=== PATIENT | male | born 1980 | race Caucasian/White ===

== ENCOUNTER 2017-12-17 08:46 | Emergency (ER) | payer OTHER ==
[2017-12-17] MEDS ORDERED: SMZ./TMP. 800/160 MG TABLET ONE (09:26)
--- NOTE | 2017-12-17 09:36 | ER ---
Nurse's Notes [facility] Name: Terrell Rosales Age: 37 yrs Sex: Male : 1980 Arrival Date: 12/17/2017 Time: 08:47 Bed 17 Private MD: Quirino Camarillo Diagnosis: Cutaneous abscess of back [any part, except buttock] Presentation: 12/17 09:03 Presenting complaint: Patient states: abscess to R upper back , approx size of a dewayne ss that has been there for years, but over the last few days has flared up and gotten tender. Denies fever. Transition of care: patient was not received from another setting of care. Onset of symptoms is unknown. Initial Sepsis Screen: Does the patient meet any 2 criteria? No. Patient's initial sepsis screen is negative. Does the patient have a suspected source of infection? No. Patient's initial sepsis screen is negative. Care prior to arrival: None. 09:03 Method Of Arrival: Ambulatory ss 09:03 Acuity: SAE 4 ss Historical: - Allergies: 09:08 PENICILLINS; ss - Home Meds: 09:08 Nexium Oral [Active]; ss - PMHx: 09:08 GERD; ss - PSHx: 09:08 Cholecystectomy; Knee surgery; ss - Immunization history:: Adult Immunizations up to date. - Social history:: Smoking status: Patient/guardian denies using tobacco. Screenin:00 Abuse screen: Denies threats or abuse. Nutritional screening: No deficits noted. rb1 Tuberculosis screening: No symptoms or risk factors identified. Fall Risk None identified. Assessment: 09:00 General: Appears in no apparent distress. comfortable, Behavior is calm, cooperative, rb1 Denies fever. Pain: Complains of pain in right scapular area Pain radiates to right arm Pain currently is 7 out of 10 on a pain scale. Pain began pt. stated, "My said that it was a cyst and I have had it for years. Never had much trouble with it until now.". Neuro: Level of Consciousness is awake, alert, obeys commands, Oriented to person, place, time, situation. Cardiovascular: Capillary refill < 3 seconds is brisk in bilateral fingers. Respiratory: Airway is patent Respiratory effort is even, unlabored, Respiratory pattern is regular, symmetrical. GI: No signs and/or symptoms were reported involving the gastrointestinal system. : No signs and/or symptoms were reported regarding the genitourinary system. Derm: Skin is pink, warm \\T\\ dry. Musculoskeletal: Pt. has a lump on the right scapula area. Surrounding tissue is red. 09:44 Reassessment: Patient appears in no apparent distress at this time. No changes from rb1 previously documented assessment. Vital Signs: 09:08 BP 138 / 97; Pulse 69; Resp 20; Temp 97.1(TE); Pulse Ox 100% on R/A; Weight 117.93 kg; ss Height 6 ft. 2 in. (187.96 cm); Pain 6/10; 09:11 BP 128 / 91; Pulse 76; Resp 18; Pulse Ox 98% on R/A; mh5 09:08 Body Mass Index 33.38 (117.93 kg, 187.96 cm) ED Course: 08:47 Patient arrived in ED. as 08:47 [facility], Quirino is Private Physician. as 09:00 Angle Cevallos FNP-C is [facility]. kb 09:00 Mauro Maradiaga MD is Attending Physician. kb 09:00 Patient has correct armband on for positive identification. Placed in gown. Bed in low rb1 position. Call light in reach. Side rails up X 1. Pulse ox on. NIBP on. 09:07 Triage completed. ss 09:08 Arm band placed on right wrist. ss 09:16 Felicity David, RN is Primary Nurse. rb1 09:55 No provider procedures requiring assistance completed. Patient did not have IV access sv during this emergency room visit. Administered Medications: 09:27 Drug: Bactrim (160 mg-800 mg (DS) 1 tablet Route: PO; rb1 09:55 Follow up: Response: No adverse reaction rb1 Outcome: 09:35 Discharge ordered by . kb 09:55 Discharged to home ambulatory. sv 09:55 Condition: stable 09:55 Discharge instructions given to patient, Instructed on discharge instructions, follow up and referral plans. medication usage, Demonstrated understanding of instructions, follow-up care, medications, Prescriptions given X 1. 09:55 Patient left the ED. sv Signatures: Angle Cevallos FNP-C FNP-Ckb Verde, Stephanie, RN RN Keya Mcclain Shelby, RN RN Felicity David, RN RN rb1 Johny, Kay [facility]
--- NOTE | 2017-12-17 09:37 | EDPHYS ---
Physician Documentation [facility] Name: Terrell Rosales Age: 37 yrs Sex: Male : 1980 Arrival Date: 12/17/2017 Time: 08:47 Bed 17 [facility] Mauro Maradiaga HPI: 12/17 09:33 This 37 yrs old Male presents to ER via Ambulatory with complaints of kb Shoulder Pain. 09:33 The patient presents with an abscess of the right scapular area. Description: kb erythematous, swollen, warm. Onset: The symptoms/episode began/occurred 4 day(s) ago. Possible cause(s): unknown. Associated signs and symptoms: Pertinent positives: erythema, swelling, Pertinent negatives: discharge, drainage, foreign body sensation, fever, headache, nausea, shortness of breath, vomiting. Modifying factors: the symptoms are alleviated by nothing, the symptoms are aggravated by pressure, touching. Severity of symptoms: At their worst the symptoms were moderate, in the emergency department the symptoms are unchanged. The patient has not experienced similar symptoms in the past. The patient has not recently seen a physician. Pt states he has had a lump on his posterior shoulder for years, but a few days ago it started becoming red and painful. States it used to be more raised than it is now as well. Denies fever, drainage. . Historical: - Allergies: 09:08 PENICILLINS; ss - Home Meds: 09:08 Nexium Oral [Active]; ss - PMHx: 09:08 GERD; ss - PSHx: 09:08 Cholecystectomy; Knee surgery; ss - Immunization history:: Adult Immunizations up to date. - Social history:: Smoking status: Patient/guardian denies using tobacco. ROS: 09:31 Constitutional: Negative for fever, chills, and weight loss, Cardiovascular: Negative kb for chest pain, palpitations, and edema, Respiratory: Negative for shortness of breath, cough, wheezing, and pleuritic chest pain, Abdomen/GI: Negative for abdominal pain, nausea, vomiting, diarrhea, and constipation, MS/Extremity: Negative for injury and deformity, Neuro: Negative for headache, weakness, numbness, tingling, and seizure. 09:31 Skin: Positive for abscess, erythema, swelling, of the right scapular area. Exam: 09:31 Constitutional: This is a well developed, well nourished patient who is awake, alert, kb and in no acute distress. Head/Face: Normocephalic, atraumatic. Chest/axilla: Normal chest wall appearance and motion. Nontender with no deformity. No lesions are appreciated. Cardiovascular: Regular rate and rhythm with a normal S1 and S2. No gallops, murmurs, or rubs. Normal PMI, no JVD. No pulse deficits. Respiratory: Lungs have equal breath sounds bilaterally, clear to auscultation and percussion. No rales, rhonchi or wheezes noted. No increased work of breathing, no retractions or nasal flaring. Abdomen/GI: Soft, non-tender, with normal bowel sounds. No distension or tympany. No guarding or rebound. No evidence of tenderness throughout. MS/ Extremity: Pulses equal, no cyanosis. Neurovascular intact. Full, normal range of motion. Neuro: Awake and alert, GCS 15, oriented to person, place, time, and situation. Cranial nerves II-XII grossly intact. Motor strength 5/5 in all extremities. Sensory grossly intact. Cerebellar exam normal. Normal gait. 09:31 Skin: abscess, that is small, nickel sized, of the right scapular area, with induration. Vital Signs: 09:08 BP 138 / 97; Pulse 69; Resp 20; Temp 97.1(TE); Pulse Ox 100% on R/A; Weight 117.93 kg; ss Height 6 ft. 2 in. (187.96 cm); Pain 6/10; 09:11 BP 128 / 91; Pulse 76; Resp 18; Pulse Ox 98% on R/A; mh5 09:08 Body Mass Index 33.38 (117.93 kg, 187.96 cm) ss MDM: 09:01 Patient medically screened. kb 09:31 Data reviewed: vital signs, nurses notes. Data interpreted: Pulse oximetry: on room air kb is 98 %. Interpretation: normal. Counseling: I had a detailed discussion with the patient and/or guardian regarding: the historical points, exam findings, and any diagnostic results supporting the discharge/admit diagnosis, the need for outpatient follow up, a family practitioner, a general surgeon, to return to the emergency department if symptoms worsen or persist or if there are any questions or concerns that arise at home. Administered Medications: 09:27 Drug: Bactrim (160 mg-800 mg (DS) 1 tablet Route: PO; rb1 09:55 Follow up: Response: No adverse reaction rb1 Disposition: 16:33 Co-signature as Attending Physician, Mauro Maradiaga MD. Disposition: 12/17/17 09:35 Discharged to Home. Impression: Cutaneous abscess of back [any part, except buttock]. - Condition is Stable. - Discharge Instructions: Abscess, [id number]. - Prescriptions for Bactrim DS 800- 160 mg Oral Tablet - take 1 tablet by ORAL route every 12 hours for 7 days; 14 tablet. - Medication Reconciliation Form, Thank You Letter, Antibiotic Education, Prescription Opioid Use form. - Follow up: Emergency Department; When: As needed; Reason: Worsening of condition. Follow up: Private Physician; When: 2 - 3 days; Reason: Recheck today's complaints, Continuance of care, Re-evaluation by your physician. Signatures: Angle Cevallos, KENNY MARS-Anupama Eduardo RN LUISA Kristal Bhatt RN RN ss Barber, Rebecca, LUISA RN rb1 Mauro Maradiaga MD MD
[2017-12-17 10:02] VITALS: BP 128/91; O2SAT 98
== END 2017-12-17 09:55 | disposition home or self-care (01) ==
LOC: ER 08:46
DX: L02.212 Cutaneous abscess of back [any part, except buttock and flank] (principal); Z88.0 Allergy status to penicillin
CPT/HCPCS: 99283

== ENCOUNTER 2019-06-10 06:12 | Emergency (ER) | payer OTHER ==
[2019-06-10 06:49] LABS: Absolute Lymphocytes (CBC) 2.4 K/uL (0.7-4.9); Basophils % 0.8 % (0-1.3); Hematocrit 43.4 % (39.6-49.0); Lymphocytes % 28.1 % (15.3-44.8); MPV 7.9 fL (7.6-11.3); RBC Red Blood Cell Count 4.96 M/uL (4.33-5.43)
[2019-06-10 06:54] LABS: Protime INR 0.97
[2019-06-10 07:54] LABS: ALT/SGPT 35 U/L (12-78); AST/SGOT 24 U/L (15-37); Albumin 3.8 g/dL (3.4-5.0); BUN Blood Urea Nitrogen 11 mg/dL (7-18); Bicarbonate 30 mmol/L (21-32); Bilirubin Direct 0.1 mg/dL (0-0.2); Glucose Level 114 mg/dL (74-106); Magnesium 2.1 mg/dL (1.8-2.4); Potassium 3.7 mmol/L (3.5-5.1); Sodium Level 139 mmol/L (136-145)
--- NOTE | 2019-06-10 07:56 | RAD REPORT ---
EXAM DESCRIPTION: Patty Single View06/10/2019 6:50 am CLINICAL HISTORY: Chest pain COMPARISON: 2011 FINDINGS: The lungs appear clear of acute infiltrate. The heart is normal size IMPRESSION: No acute abnormalities displayed
[2019-06-10 08:25] LABS: Alkaline Phosphatase 70 U/L (45-117); Bilirubin Total 0.5 mg/dL (0.2-1.0); NT PRO-BNP 9 pg/mL (<125); Protein, Total 6.8 g/dL (6.4-8.2); Troponin (Emerg Dept Use Only) < 0.02 ng/mL (0.0-0.045)
--- NOTE | 2019-06-10 08:46 | EDPHYS ---
Physician Documentation [facility] Name: Terrell Rosales Age: 39 yrs Sex: Male : 1980 Arrival Date: 06/10/2019 Time: 06:17 Bed 7 Private MD: ED Physician Mauro Maradiaga HPI: 06/10 06:40 This 39 yrs old Male presents to ER via Ambulatory with complaints of Chest kdr Pain. 06:40 The patient or guardian reports chest pain that is located primarily in the Initially kdr started about a week ago with discomfort just above his left nipple. Over the course of the week, the discomfort has spread across his entire anterior chest. Feels tight. He has been using a CPAP machine for the last month. Onset: gradually, 1 week(s) ago. The pain does not radiate. Associated signs and symptoms: Pertinent positives: shortness of breath, Pertinent negatives: cough, diaphoresis, dizziness, nausea. The chest pain is described as aching, burning, dull, a pressure. Duration: The patient or guardian reports multiple episodes, that are intermittent, that wax and wane, with no pattern. Modifying factors: The symptoms are alleviated by nothing. the symptoms are aggravated by nothing. Severity of pain: At its worst the pain was mild moderate just prior to arrival, in the emergency department the pain is unchanged. The patient has not experienced similar symptoms in the past, Not this bad and persistent. Historical: - Allergies: 06:27 PENICILLINS; bb - Home Meds: 06:27 Nexium Oral [Active]; bb - PMHx: 06:27 GERD; Anxiety; Depression; bb - PSHx: 06:27 R knee; Cholecystectomy; bb - Immunization history:: Adult Immunizations up to date. - Social history:: Smoking status: Patient/guardian denies using tobacco, Patient/guardian denies using alcohol, street drugs. - Ebola Screening: : No symptoms or risks identified at this time. ROS: 06:40 Constitutional: Negative for fever, chills, and weight loss, Eyes: Negative for injury, kdr pain, redness, and discharge, ENT: Negative for injury, pain, and discharge, Neck: Negative for injury, pain, and swelling, Respiratory: Negative for shortness of breath, cough, wheezing, and pleuritic chest pain, Abdomen/GI: Negative for abdominal pain, nausea, vomiting, diarrhea, and constipation, Back: Negative for injury and pain, : Negative for injury, bleeding, discharge, and swelling, MS/Extremity: Negative for injury and deformity, Skin: Negative for injury, rash, and discoloration, Neuro: Negative for headache, weakness, numbness, tingling, and seizure activity. Psych: Negative for depression, anxiety, suicide ideation, homicidal ideation, and hallucinations, Allergy/Immunology: Negative for hives, rash, and allergies, Endocrine: Negative for neck swelling, polydipsia, polyuria, polyphagia, and marked weight changes, Hematologic/Lymphatic: Negative for swollen nodes, abnormal bleeding, and unusual bruising. 06:40 Cardiovascular: Positive for chest pain, Negative for edema, orthopnea, palpitations, paroxysmal nocturnal dyspnea. Exam: 06:40 Constitutional: This is a well developed, well nourished patient who is awake, alert, kdr and in no acute distress. Head/Face: Normocephalic, atraumatic. Eyes: Pupils equal round and reactive to light, extra-ocular motions intact. Lids and lashes normal. Conjunctiva and sclera are non-icteric and not injected. Cornea within normal limits. Periorbital areas with no swelling, redness, or edema. Neck: Trachea midline, no thyromegaly or masses palpated, and no cervical lymphadenopathy. Supple, full range of motion without nuchal rigidity, or vertebral point tenderness. No Meningismus. Chest/axilla: Normal chest wall appearance and motion. Nontender with no deformity. No lesions are appreciated. Cardiovascular: Regular rate and rhythm with a normal S1 and S2. No gallops, murmurs, or rubs. Normal PMI, no JVD. No pulse deficits. Respiratory: Lungs have equal breath sounds bilaterally, clear to auscultation and percussion. No rales, rhonchi or wheezes noted. No increased work of breathing, no retractions or nasal flaring. Abdomen/GI: Soft, non-tender, with normal bowel sounds. No distension or tympany. No guarding or rebound. No evidence of tenderness throughout. Back: No spinal tenderness. No costovertebral tenderness. Full range of motion. Skin: Warm, dry with normal turgor. Normal color with no rashes, no lesions, and no evidence of cellulitis. MS/ Extremity: Pulses equal, no cyanosis. Neurovascular intact. Full, normal range of motion. Neuro: Awake and alert, GCS 15, oriented to person, place, time, and situation. Cranial nerves II-XII grossly intact. Motor strength 5/5 in all extremities. Sensory grossly intact. Cerebellar exam normal. Normal gait. Psych: Awake, alert, with orientation to person, place and time. Behavior, mood, and affect are within normal limits. Vital Signs: 06:27 BP 134 / 94; Pulse 73; Resp 16 S; Temp 97.9(O); Pulse Ox 99% on R/A; Weight 120.2 kg bb (R); Height 6 ft. 2 in. (187.96 cm) (R); Pain 8/10; 07:30 BP 128 / 88; Pulse 70; Resp 15; Pulse Ox 100% on R/A; hb 08:30 BP 130 / 80; Pulse 79; Resp 16; Pulse Ox 100% on R/A; hb 06:27 Body Mass Index 34.02 (120.20 kg, 187.96 cm) bb MDM: 07:49 Patient medically screened. gs 08:42 Differential diagnosis: acute myocardial infarction, coronary artery disease chest wall gs pain, gastroesophageal reflux disease (GERD). HEART Score: History: Slightly Suspicious (0), ECG: Normal (0), Age: < or = 45 years (0), Risk Factors: No Risk Factors Known (0), Troponin: < or = 1 x Normal Limit (0). Data reviewed: vital signs, nurses notes, lab test result(s), EKG, radiologic studies. Counseling: I had a detailed discussion with the patient and/or guardian regarding: the historical points, exam findings, and any diagnostic results supporting the discharge/admit diagnosis, the presence of at least one elevated blood pressure reading (>120/80) during this emergency department visit, lab results, radiology results, the need for outpatient follow up. Response to treatment: the patient's symptoms have resolved after treatment, the patient's pain is gone. 08:45 ED course: pt seen and examined workup negative stable for op follow up. 06/10 06:20 Order name: Basic Metabolic Panel; Complete Time: 08:42 kdr 06/10 06:20 Order name: CBC with Diff; Complete Time: 07:05 kdr 06/10 06:20 Order name: LFT's; Complete Time: 08:42 [facility] 06/10 06:20 Order name: Magnesium; Complete Time: 08:42 [facility] 06/10 06:20 Order name: NT PRO-BNP; Complete Time: 08:42 [facility] 06/10 06:20 Order name: PT-INR; Complete Time: 07:05 [facility] 06/10 06:20 Order name: Troponin (emerg Dept Use Only); Complete Time: 08:42 [facility] 06/10 06:20 Order name: XRAY Chest (1 view); Complete Time: 08:24 [facility] 06/10 06:20 Order name: EKG; Complete Time: 06:21 [facility] 06/10 06:20 Order name: Cardiac monitoring; Complete Time: 06:38 [facility] 06/10 06:20 Order name: EKG - Nurse/Tech; Complete Time: 06:35 [facility] 06/10 06:20 Order name: IV Saline Lock; Complete Time: 06:38 [facility] 06/10 06:20 Order name: Labs collected and sent; Complete Time: 06:38 [facility] 06/10 06:20 Order name: O2 Per Protocol; Complete Time: 06:38 [facility] 06/10 06:20 Order name: O2 Sat Monitoring; Complete Time: 06:38 [facility] 06/10 07:12 Order name: Labs - recollect needed: green top for recollect; Complete Time: 07:27 eb Administered Medications: No medications were administered Disposition: 06/10/19 08:45 Discharged to Home. Impression: Chest pain, unspecified. - Condition is Stable. - Discharge Instructions: Nonspecific Chest Pain. - Medication Reconciliation Form, Thank You Letter, Antibiotic Education, Prescription Opioid Use form. - Follow up: Mg Goyal MD; When: 2 - 3 days; Reason: Re-evaluation by your physician. Signatures: Dispatcher [employer] EDFL Brayan Adamson MD MD kdr Ballard, Brenda, RN RN Christina Torres RN RN Mauro Maradiaga MD MD gs Botello, Elizabeth eb Corrections: (The following items were deleted from the chart) 09:04 08:45 06/10/2019 08:45 Discharged to Home. Impression: Chest pain, unspecified. hb Condition is Stable. Forms are Medication Reconciliation Form, Thank You Letter, Antibiotic Education, Prescription Opioid Use. Follow up: Mg Goyal; When: 2 - 3 days; Reason: Re-evaluation by your physician. gs
--- NOTE | 2019-06-10 08:46 | ER ---
Nurse's Notes [facility] Name: Terrell Rosales Age: 39 yrs Sex: Male : 1980 Arrival Date: 06/10/2019 Time: 06:17 Bed 7 Private MD: Diagnosis: Chest pain, unspecified Presentation: 06/10 06:25 Presenting complaint: Patient states: he has been having intermittent chest pain x 1 bb week the pain is worsening gets up to 9/10 pt has SOB during these episodes but denies nausea pt states he is under a lot of stress at work. Transition of care: patient was not received from another setting of care. Onset of symptoms was June 03, 2019. Risk Assessment: Do you want to hurt yourself or someone else? Patient reports no desire to harm self or others. Initial Sepsis Screen: Does the patient meet any 2 criteria? No. Patient's initial sepsis screen is negative. Does the patient have a suspected source of infection? No. Patient's initial sepsis screen is negative. Care prior to arrival: None. 06:25 Method Of Arrival: Ambulatory bb 06:25 Acuity: SAE 3 bb Historical: - Allergies: 06:27 PENICILLINS; bb - Home Meds: 06:27 Nexium Oral [Active]; bb - PMHx: 06:27 GERD; Anxiety; Depression; bb - PSHx: 06:27 R knee; Cholecystectomy; bb - Immunization history:: Adult Immunizations up to date. - Social history:: Smoking status: Patient/guardian denies using tobacco, Patient/guardian denies using alcohol, street drugs. - Ebola Screening: : No symptoms or risks identified at this time. Screenin:39 Abuse screen: Denies threats or abuse. Denies injuries from another. Nutritional ak1 screening: No deficits noted. Tuberculosis screening: No symptoms or risk factors identified. Fall Risk None identified. Assessment: 06:39 General: Appears in no apparent distress. Behavior is calm, cooperative, anxious. Pain: ak1 Pain does not radiate. Quality of pain is described as pressure, Pain began 1 week intermittent CATERING CHEF. Neuro: Level of Consciousness is awake, alert, obeys commands, Oriented to person, place, time, situation, Appropriate for age Assistant Produce Manager are equal bilaterally Moves all extremities. Full function Gait is steady, Speech is normal. Cardiovascular: Heart tones S1 S2 present Capillary refill < 3 seconds Rhythm is sinus rhythm. Respiratory: Reports shortness of breath with chest tightness Airway is patent Respiratory effort is even, unlabored, Respiratory pattern is regular. GI: No signs and/or symptoms were reported involving the gastrointestinal system. : No signs and/or symptoms were reported regarding the genitourinary system. EENT: No signs and/or symptoms were reported regarding the EENT system. Derm: No signs and/or symptoms reported regarding the dermatologic system. Musculoskeletal: No signs and/or symptoms reported regarding the musculoskeletal system. 07:30 Reassessment: Patient appears in no apparent distress at this time. Patient and/or hb family updated on plan of care and expected duration. Pain level reassessed. Patient is alert, oriented x 3, equal unlabored respirations, skin warm/dry/pink. 08:30 Reassessment: Patient appears in no apparent distress at this time. No changes from hb previously documented assessment. Patient and/or family updated on plan of care and expected duration. Pain level reassessed. Patient is alert, oriented x 3, equal unlabored respirations, skin warm/dry/pink. Vital Signs: 06:27 BP 134 / 94; Pulse 73; Resp 16 S; Temp 97.9(O); Pulse Ox 99% on R/A; Weight 120.2 kg bb (R); Height 6 ft. 2 in. (187.96 cm) (R); Pain 8/10; 07:30 BP 128 / 88; Pulse 70; Resp 15; Pulse Ox 100% on R/A; hb 08:30 BP 130 / 80; Pulse 79; Resp 16; Pulse Ox 100% on R/A; hb 06:27 Body Mass Index 34.02 (120.20 kg, 187.96 cm) bb ED Course: 06:17 Patient arrived in ED. es 06:19 Brayan Adamson MD is Attending Physician. kdr 06:26 Triage completed. bb 06:27 Arm band placed on Patient placed in an exam room, on a stretcher, on software team leader, bb on pulse oximetry. EKG completed in triage. Results shown to MD. 06:38 Initial lab(s) drawn, by me, sent to lab. EKG done, by ED staff, reviewed by Brayan Adamson MD. Inserted saline lock: 20 gauge in right antecubital area, using aseptic technique. Blood collected. Patient maintains SpO2 saturation greater than 95% on room air. 06:39 Patient has correct armband on for positive identification. Placed in gown. Bed in low ak1 position. Call light in reach. Side rails up X 1. cemetery manager on. Pulse ox on. NIBP on. 06:50 XRAY Chest (1 view) In Process Unspecified. EDMS 07:08 Attending Physician role handed off by Brayan Adamson MD 07:08 Mauro Maradiaga MD is Attending Physician. 07:19 Annabelle Nunez, RN is Primary Nurse. ph 08:45 Mg Goyal MD is Referral Physician. 09:03 No provider procedures requiring assistance completed. IV discontinued, intact, hb bleeding controlled, No redness/swelling at site. Pressure dressing applied. Administered Medications: No medications were administered Outcome: 08:45 Discharge ordered by . gs 09:03 Discharged to home ambulatory. hb 09:03 Condition: stable 09:03 Discharge instructions given to patient, Instructed on discharge instructions, follow up and referral plans. medication usage, Demonstrated understanding of instructions, follow-up care, medications. 09:04 Patient left the ED. hb Signatures: Dispatcher [employer] EDGA Brayan Adamson MD MD kdr Salyer, Edna es Ballard, Brenda, Letah Rodriguez RN, RN RN ak Annabelle Nunez RN RN Christina Sadler, LUISA RN Mauro Maradiaga MD MD
[2019-06-10 09:19] VITALS: TEMP 97.9
[2019-06-10 09:20] VITALS: O2SAT 100
[2019-06-10 09:21] VITALS: BP 130/80
--- NOTE | 2019-06-10 12:54 | EKG ---
Test Date: 2019-06-10 Test Time: 06:24:25 Design Printing Machine Setter: DAVIS MEASUREMENT RESULTS: Intervals: Rate: 67 ID: [id number] QRSD: 96 QT: 396 QTc: 418 [place]: P: 37 ID: [id number] QRS: 81 T: 52 INTERPRETIVE STATEMENTS: Normal sinus rhythm Normal ECG Compared to ECG 09/29/2011 18:02:37 No significant changes Electronically Signed On 06-10-19 12:53:05 CDT by Mg Goyal
== END 2019-06-10 09:04 | disposition home or self-care (01) ==
LOC: ER 06:12
DX: R07.9 Chest pain, unspecified (principal); K21.9 Gastro-esophageal reflux disease without esophagitis; Z88.0 Allergy status to penicillin
CPT/HCPCS: 36415; 71045; 80048; 80076; 83735; 83880; 84484; 85025; 85610; 93005; 99285

== ENCOUNTER 2019-11-13 17:25 | Emergency (ER) | payer OTHER ==
[2019-11-13] MEDS ORDERED: METHYLPREDNISOLONE 125 MG INJ ONE (18:22)
[2019-11-13] MEDS ORDERED: ONDANSETRON 4 MG/2 ML VIAL ONE (18:23)
[2019-11-13] MEDS ORDERED: KETOROLAC 30 MG/ML INJ ONE (18:23)
[2019-11-13] MEDS ORDERED: METHOCARBAMOL 1,000 MG/10 ML VIAL IV ONE (18:23)
[2019-11-13] MEDS ORDERED: FAMOTIDINE 20 MG/2 ML VIAL IV ONE (18:23)
[2019-11-13] MEDS ORDERED: FENTANYL CITR 100 MCG/2 ML ONE (18:23)
[2019-11-13] MEDS ORDERED: NA CHLORIDE 0.9% 250 ML ONE (18:24)
--- NOTE | 2019-11-13 20:00 | ER ---
Nurse's Notes [facility] Name: Terrell Rosales Age: 39 yrs Sex: Male : 1980 Arrival Date: 11/13/2019 Time: 17:29 Bed 24 Private MD: Diagnosis: Acute on chronic low back pain Presentation: 11/12 17:40 Chief complaint: Patient states: LOWER BACK PAIN SINCE REACHING FOR TOILET PAPER AND ls4 TWISTING. PT STATES HE DOES THIS YEARLY. Coronavirus screen: Patient denies fever greater than 100.4F, cough, shortness of breath, or difficulty breathing. 17:40 Method Of Arrival: Ambulatory ls4 17:40 Ebola Screen: No symptoms or risks identified at this time. Initial Sepsis Screen: Does ls4 the patient meet any 2 criteria? No. Patient's initial sepsis screen is negative. Does the patient have a suspected source of infection? No. Patient's initial sepsis screen is negative. Risk Assessment: Do you want to hurt yourself or someone else? Patient reports no desire to harm self or others. 17:40 Acuity: SAE 3 ls4 Triage Assessment: 17:36 General: Appears distressed, uncomfortable, Behavior is calm, cooperative, appropriate ls4 for age. Pain: Complains of pain in low back area Pain currently is 10 out of 10 on a pain scale. Pain began suddenly, Is continuous, Alleviated by nothing. Aggravated by increased activity, Noted to be crying, grimacing, guarding, moaning, restless. 17:36 Neuro: No deficits noted. Cardiovascular: No deficits noted. Respiratory: No deficits ls4 noted. GI: No deficits noted. No signs and/or symptoms were reported involving the gastrointestinal system. : No deficits noted. No signs and/or symptoms were reported regarding the genitourinary system. Musculoskeletal: Circulation, motion, and sensation intact. Capillary refill < 3 seconds, Range of motion: intact in all extremities. Historical: - Allergies: 19:16 PENICILLINS; ls4 - Home Meds: 19:16 Nexium Oral [Active]; ls4 - PMHx: 19:16 Anxiety; Depression; GERD; ls4 - Immunization history:: Adult Immunizations up to date. - Social history:: Smoking status: Patient denies any tobacco usage or history of. Screenin:41 Abuse screen: Denies threats or abuse. Denies injuries from another. Nutritional ls4 screening: No deficits noted. Tuberculosis screening: No symptoms or risk factors identified. Fall Risk None identified. Assessment: 19:50 Reassessment: Patient appears in no apparent distress at this time. Patient and/or ls4 family updated on plan of care and expected duration. Pain level reassessed. Patient is alert, oriented x 3, equal unlabored respirations, skin warm/dry/pink. Patient states feeling better. Patient states symptoms have improved. 19:50 Neuro: No deficits noted. ls4 Vital Signs: 17:43 BP 136 / 99; Pulse 80; Resp 16; Temp 98.2; Pulse Ox 98% ; lt1 18:42 BP 133 / 89; Pulse 76; Resp 14; Pulse Ox 99% on R/A; Pain 3/10; ls4 ED Course: 17:29 Patient arrived in ED. as 17:40 Brayan Adamson MD is Attending Physician. kdr 17:40 Arm band placed on left wrist. ls4 17:41 No provider procedures requiring assistance completed. Inserted saline lock: 24 gauge ls4 in right hand, using aseptic technique. 17:44 Call light in reach. Door closed. Lights dimmed. lt1 18:10 Emmie Lopez, LUISA is Primary Nurse. ls4 18:15 Triage completed. ls4 18:50 Attending Physician role handed off by Brayan Adamson MD pkl 18:50 Kunal Ríos MD is Attending Physician. pkl 19:52 IV discontinued, intact, bleeding controlled, No redness/swelling at site. Pressure ls4 dressing applied. Administered Medications: 18:45 Drug: SOLU-Medrol 125 mg Route: IVP; Site: right antecubital; ls4 19:15 Follow up: Response: No adverse reaction; Marked relief of symptoms ls4 18:45 Drug: Robaxin 1500 mg Route: IVPB; Infused Over: 1 hrs; Site: right hand; ls4 19:45 Follow up: Response: No adverse reaction; Marked relief of symptoms; IV Status: ls4 Completed infusion; IV Intake: 250ml 18:45 Drug: fentaNYL (PF) 50 mcg Route: IVP; Site: right hand; ls4 19:15 Follow up: Response: No adverse reaction; Marked relief of symptoms ls4 18:45 Drug: Zofran (Ondansetron) 4 mg Route: IVP; Site: right antecubital; ls4 19:15 Follow up: Response: No adverse reaction; Marked relief of symptoms ls4 19:15 Follow up: Response: No adverse reaction ls4 18:45 Drug: TORadol - Ketorolac 15 mg Route: IVP; Site: right antecubital; ls4 18:45 Drug: Pepcid 20 mg Route: IVP; Site: right hand; ls4 19:15 Follow up: Response: No adverse reaction; Marked relief of symptoms ls4 Intake: 19:45 IV: 250ml; Total: 250ml. ls4 Outcome: 19:58 Discharge ordered by . pkl 20:12 Condition: good ls4 20:12 Discharged to home ambulatory, with family. ls4 20:12 Discharge instructions given to patient, Instructed on discharge instructions, follow up and referral plans. medication usage, Demonstrated understanding of instructions, follow-up care, medications, Prescriptions given X 2. 20:13 Patient left the ED. ls4 Signatures: Kunal Ríos MD MD pkl Rittger, Kevin, MD MD kdr Martinez, Amelia as Stewart, Lisa, LUISA RN ls4 Serene Bingham [facility]
--- NOTE | 2019-11-13 20:00 | EDPHYS ---
Physician Documentation [facility] Name: Terrell Rosales Age: 39 yrs Sex: Male : 1980 Arrival Date: 11/13/2019 Time: 17:29 Bed 24 Private MD: ED Physician Kunal Ríos HPI: 11/12 18:16 This 39 yrs old Male presents to ER via Ambulatory with complaints of Back kdr Pain. 18:16 The patient presents with pain that is acute, and decreased range of motion. The kdr symptoms are located in the low back. Onset: The symptoms/episode began/occurred acutely, just prior to arrival. The pain does not radiate. Associated signs and symptoms: The patient has no apparent associated signs or symptoms. The problem was sustained when bending over, The patient was bending over to wipe when he felt acute pain to his low back. Modifying factors: The patient symptoms are alleviated by nothing, the patient symptoms are aggravated by any movement. Severity of symptoms: At their worst the symptoms were severe, incapacitating, just prior to arrival, in the emergency department the symptoms are unchanged. The patient has experienced similar episodes in the past, multiple times. The patient has not recently seen a physician. Historical: - Allergies: 19:16 PENICILLINS; ls4 - Home Meds: 19:16 Nexium Oral [Active]; ls4 - PMHx: 19:16 Anxiety; Depression; GERD; ls4 - Immunization history:: Adult Immunizations up to date. - Social history:: Smoking status: Patient denies any tobacco usage or history of. ROS: 18:16 Constitutional: Negative for fever, chills, and weight loss, Eyes: Negative for injury, kdr pain, redness, and discharge, Neck: Negative for injury, pain, and swelling, Cardiovascular: Negative for chest pain, palpitations, and edema, Respiratory: Negative for shortness of breath, cough, wheezing, and pleuritic chest pain, Abdomen/GI: Negative for abdominal pain, nausea, vomiting, diarrhea, and constipation, : Negative for injury, bleeding, discharge, and swelling, Skin: Negative for injury, rash, and discoloration, Neuro: Negative for headache, weakness, numbness, tingling, and seizure activity. Psych: Negative for depression, anxiety, suicide ideation, homicidal ideation, and hallucinations, Allergy/Immunology: Negative for hives, rash, and allergies, Endocrine: Negative for neck swelling, polydipsia, polyuria, polyphagia, and marked weight changes, Hematologic/Lymphatic: Negative for swollen nodes, abnormal bleeding, and unusual bruising. 18:16 Back: Positive for injury or acute deformity, decreased range of motion, pain at rest, pain with movement, of the low back area. Exam: 18:16 Constitutional: This is a well developed, well nourished patient who is awake, alert, kdr and in moderate distress. 18:16 Back: pain, that is mild, ROM is painful. Vital Signs: 17:43 BP 136 / 99; Pulse 80; Resp 16; Temp 98.2; Pulse Ox 98% ; lt1 18:42 BP 133 / 89; Pulse 76; Resp 14; Pulse Ox 99% on R/A; Pain 3/10; ls4 MDM: 18:16 Data reviewed: vital signs, nurses notes. kdr 19:54 ED course: Patient feeling better. Advised to follow up with his pain management doctor pkl ( Dr. Alston ) in 2 to 3 days. Patient understood instructions.. 19:58 Patient medically screened. pkl Administered Medications: 18:45 Drug: SOLU-Medrol 125 mg Route: IVP; Site: right antecubital; ls4 19:15 Follow up: Response: No adverse reaction; Marked relief of symptoms ls4 18:45 Drug: Robaxin 1500 mg Route: IVPB; Infused Over: 1 hrs; Site: right hand; ls4 19:45 Follow up: Response: No adverse reaction; Marked relief of symptoms; IV Status: ls4 Completed infusion; IV Intake: 250ml 18:45 Drug: fentaNYL (PF) 50 mcg Route: IVP; Site: right hand; ls4 19:15 Follow up: Response: No adverse reaction; Marked relief of symptoms ls4 18:45 Drug: Zofran (Ondansetron) 4 mg Route: IVP; Site: right antecubital; ls4 19:15 Follow up: Response: No adverse reaction; Marked relief of symptoms ls4 19:15 Follow up: Response: No adverse reaction ls4 18:45 Drug: TORadol - Ketorolac 15 mg Route: IVP; Site: right antecubital; ls4 18:45 Drug: Pepcid 20 mg Route: IVP; Site: right hand; ls4 19:15 Follow up: Response: No adverse reaction; Marked relief of symptoms ls4 Disposition: 11/13/19 19:58 Discharged to Home. Impression: Acute on chronic low back pain. - Condition is Stable. - Prescriptions for Cyclobenzaprine 10 mg Oral Tablet - take 1 tablet by ORAL route 2 times per day As needed; 20 tablet. - Medication Reconciliation Form, Thank You Letter, Antibiotic Education, Prescription Opioid Use form. - Follow up: Private Physician; When: 2 - 3 days; Reason: Re-evaluation by your physician. - Problem is new. - Symptoms have improved. Signatures: Kunal Ríos MD MD pkl Brayan Adamson MD MD kdr Stewart, Lisa RN RN ls4 Corrections: (The following items were deleted from the chart) 20:13 19:58 11/13/2019 19:58 Discharged to Home. Impression: Acute on chronic low back pain. ls4 Condition is Stable. Forms are Medication Reconciliation Form, Thank You Letter, Antibiotic Education, Prescription Opioid Use. Follow up: Private Physician; When: 2 - 3 days; Reason: Re-evaluation by your physician. Problem is new. Symptoms have improved. pkl
[2019-11-13 20:20] VITALS: BP 136/99; TEMP 98.2; O2SAT 98
== END 2019-11-13 20:13 | disposition home or self-care (01) ==
LOC: ER 17:25
DX: M54.5 Low back pain (principal); Z88.0 Allergy status to penicillin; K21.9 Gastro-esophageal reflux disease without esophagitis
CPT/HCPCS: 99283; J3010; J7030; J2930; J2405; J2800

== ENCOUNTER 2021-11-17 14:06 | Observation (INO) | payer OTHER ==
[2021-11-17] MEDS ORDERED: FAMOTIDINE 20 MG/2 ML VIAL IV ONE (14:29)
[2021-11-17] MEDS ORDERED: ONDANSETRON 4 MG/2 ML VIAL ONE (14:29)
[2021-11-17] MEDS ORDERED: NA CHLORIDE 0.9% 500 ML ONE (14:29)
[2021-11-17] MEDS ORDERED: MORPHINE 4 MG/ML SYR ONE (14:29)
[2021-11-17] MEDS ORDERED: MAGNES/ALUMIN/SIMET 30ML UCUP ONE (14:52)
[2021-11-17] MEDS ORDERED: ASPIRIN 81 MG CHEWABLE TABLET ONE (14:53)
[2021-11-17] MEDS ORDERED: LIDOCAINE VISCOUS 2% SOLN 15 ML UDC ONE (14:53)
[2021-11-17 14:56] LABS: Absolute Lymphocytes (CBC) 2.5 K/uL (0.7-4.9); Hematocrit 42.5 % (39.6-49.0); Lymphocytes % 27.8 % (15.3-44.8); MPV 7.2 fL (7.6-11.3); Protime INR 1.02; RBC Red Blood Cell Count 4.92 M/uL (4.33-5.43)
[2021-11-17 15:01] LABS: Albumin 3.8 g/dL (3.4-5.0); Bilirubin Direct 0.1 mg/dL (0-0.2); Bilirubin Total 0.3 mg/dL (0.2-1.0); Magnesium 2.2 mg/dL (1.8-2.4); Potassium 3.3 mmol/L (3.5-5.1); Protein, Total 7.5 g/dL (6.4-8.2)
[2021-11-17 15:04] LABS: Troponin High Sensitivity 7.6 pg/mL (<58.9)
--- NOTE | 2021-11-17 15:12 | EDPHYS ---
Physician Documentation [facility] Name: Terrell Rosales Age: 41 yrs Sex: Male : 1980 Arrival Date: 11/17/2021 Time: 14:07 Bed 4 Private MD: LUIS Physician Graham Boone HPI: 11/17 14:27 This 41 yrs old Male presents to ER via Wheelchair with complaints of Chest marina Pain. Historical: - Allergies: 14:14 PENICILLINS; ab2 - PMHx: 14:14 Anxiety; Depression; GERD; ab2 - PSHx: 14:14 None; ab2 - Immunization history:: Adult Immunizations up to date. - Social history:: Smoking status: Patient denies any tobacco usage or history of. ROS: 14:27 Constitutional: Negative for fever, chills, and weight loss, Eyes: Negative for injury, marina pain, redness, and discharge, ENT: Negative for injury, pain, and discharge, Neck: Negative for injury, pain, and swelling, Cardiovascular: Negative for chest pain, palpitations, and edema, Abdomen/GI: Negative for abdominal pain, nausea, vomiting, diarrhea, and constipation, Back: Negative for injury and pain, : Negative for injury, bleeding, discharge, and swelling, MS/Extremity: Negative for injury and deformity, Skin: Negative for injury, rash, and discoloration, Neuro: Negative for headache, weakness, numbness, tingling, and seizure, Psych: Negative for depression, anxiety, suicide ideation, homicidal ideation, and hallucinations, Allergy/Immunology: Negative for hives, rash, and allergies, Endocrine: Negative for neck swelling, polydipsia, polyuria, polyphagia, and marked weight changes, Hematologic/Lymphatic: Negative for swollen nodes, abnormal bleeding, and unusual bruising. 14:27 Respiratory: Positive for shortness of breath, at rest. Exam: 14:27 Constitutional: This is a well developed, well nourished patient who is awake, alert, marina and in no acute distress. Head/Face: Normocephalic, atraumatic. Eyes: Pupils equal round and reactive to light, extra-ocular motions intact. Lids and lashes normal. Conjunctiva and sclera are non-icteric and not injected. Cornea within normal limits. Periorbital areas with no swelling, redness, or edema. ENT: Nares patent. No nasal discharge, no septal abnormalities noted. Tympanic membranes are normal and external auditory canals are clear. Oropharynx with no redness, swelling, or masses, exudates, or evidence of obstruction, uvula midline. Mucous membranes moist. Neck: Trachea midline, no thyromegaly or masses palpated, and no cervical lymphadenopathy. Supple, full range of motion without nuchal rigidity, or vertebral point tenderness. No Meningismus. Chest/axilla: Normal chest wall appearance and motion. Nontender with no deformity. No lesions are appreciated. Respiratory: Lungs have equal breath sounds bilaterally, clear to auscultation and percussion. No rales, rhonchi or wheezes noted. No increased work of breathing, no retractions or nasal flaring. Abdomen/GI: Soft, non-tender, with normal bowel sounds. No distension or tympany. No guarding or rebound. No evidence of tenderness throughout. Back: No spinal tenderness. No costovertebral tenderness. Full range of motion. Male : Normal genitalia with no discharge or lesions. Skin: Warm, dry with normal turgor. Normal color with no rashes, no lesions, and no evidence of cellulitis. MS/ Extremity: Pulses equal, no cyanosis. Neurovascular intact. Full, normal range of motion. Neuro: Awake and alert, GCS 15, oriented to person, place, time, and situation. Cranial nerves II-XII grossly intact. Motor strength 5/5 in all extremities. Sensory grossly intact. Cerebellar exam normal. Normal gait. Psych: Awake, alert, with orientation to person, place and time. Behavior, mood, and affect are within normal limits. 14:27 Cardiovascular: Rate: normal, Rhythm: regular, Pulses: Pulses are 4+ in bilateral radial, brachial, femoral, popliteal, posterior tibial and and dorsalis pedis arteries.. Heart sounds: normal, Edema: is not appreciated, JVD: is not appreciated. 14:27 ECG was reviewed by the Attending Physician. Vital Signs: 14:13 BP 152 / 113; Pulse 90; Resp 20; Pulse Ox 100% on R/A; Weight 117.93 kg; Height 6 ft. 2 ab2 in. (187.96 cm); Pain 10/10; 14:22 Temp 97.6; ww 15:00 BP 133 / 82; Pulse 70; Resp 18; Pulse Ox 99% ; Pain 2/10; jh6 17:36 BP 142 / 89; Pulse 105; Resp 19; ww 14:13 Body Mass Index 33.38 (117.93 kg, 187.96 cm) ab2 MDM: 14:15 Patient medically screened. marina 14:31 Differential diagnosis: abnormal EKG, acute myocardial infarction, acute pericarditis, marina coronary artery disease chest wall pain, cholecystitis, Cholelithiasis costochondritis, esophagitis, gastritis, pancreatitis, pericarditis, pulmonary embolus, stable angina, unstable angina. HEART Score: History: Slightly Suspicious (0), ECG: Normal (0), Age: < or = 45 years (0), Risk Factors: > or = 3 Risk factors for atherosclerotic disease (2), [Hypertension] [+ Family HX] [Obesity] Troponin: < or = 1 x Normal Limit (0), Total Score = 2. The patient was given aspirin in the Emergency Department. The patient's deep vein thrombosis risk score was calculated as follows: Total Score: 0. This patient was found to be at low risk for a deep vein thrombosis by using the Well's assessment criteria. The patient's pulmonary embolism risk score was calculated as follows: Total Score: 0-2 points. This patient was found to be at low risk for a pulmonary embolism by using the Well's assessment criteria. FABI Risk Score: 1 - Three or more CAD risk factors, TOTAL SCORE = 1. Data reviewed: vital signs, nurses notes, lab test result(s), EKG, radiologic studies, CT scan, plain films. Data interpreted: property assessment monitor: rate is 90 beats/min, rhythm is regular, Pulse oximetry: on room air is 100 %. Test interpretation: by ED physician or midlevel provider: ECG, plain radiologic studies. 11/17 14:21 Order name: Basic Metabolic Panel; Complete Time: : [facility] 11/17 14:21 Order name: CBC with Diff; Complete Time: : [facility] 11/17 14:21 Order name: LFT's; Complete Time: 15: [facility] 11/17 14:21 Order name: Magnesium; Complete Time: 15: [facility] 11/17 14:21 Order name: NT PRO-BNP; Complete Time: 15: [facility] 11/17 14:21 Order name: PT-INR; Complete Time: 15: [facility] 11/17 14:21 Order name: Troponin HS; Complete Time: 15:09 [facility] 11/17 14:21 Order name: Lipase; Complete Time: 15: [facility] 11/17 15:18 Order name: SARS-COV-2 RT PCR (Document "Date of Onset" if Symptomatic) [facility] 11/17 15:44 Order name: Urine Dipstick-Ancillary [facility] 11/17 16:25 Order name: Basic Metabolic Panel [facility] 11/17 16:25 Order name: Basic Metabolic Panel [facility] 11/17 16:25 Order name: CBC with Automated Diff [facility] 11/17 16:25 Order name: CBC with Automated Diff [facility] 11/17 14:21 Order name: XRAY Chest (1 view) [facility] 11/17 14:21 Order name: EKG; Complete Time: 14:22 [facility] 11/17 14:24 Order name: CT Chest For PE Angio [facility] 11/17 16:25 Order name: CONS Physician Consult [facility] 11/17 16:25 Order name: Echo with Doppler [facility] 11/17 16:25 Order name: Lipid Profile [facility] 11/17 16:25 Order name: Lipid Profile [facility] 11/17 14:21 Order name: Cardiac monitoring; Complete Time: 14:23 [facility] 11/17 14:21 Order name: EKG - Nurse/Tech; Complete Time: 14:23 [facility] 11/17 14:21 Order name: IV Saline Lock; Complete Time: 14:23 [facility] 11/17 14:21 Order name: Labs collected and sent; Complete Time: 14:23 [facility] 11/17 14:21 Order name: O2 Per Protocol; Complete Time: 14:23 [facility] 11/17 14:21 Order name: O2 Sat Monitoring; Complete Time: 14:23 [facility] 11/17 14:21 Order name: Urine Dipstick-Ancillary (obtain specimen); Complete Time: 15:36 [facility] 11/17 16:25 Order name: Heart Healthy [facility] 11/17 16:25 Order name: EKG Electrocardiogram [facility] 11/17 16:25 Order name: EKG Electrocardiogram [facility] EC: Rate is 65 beats/min. Rhythm is regular. QRS [place] is Normal. GA interval is normal. QRS marina interval is normal. QT interval is normal. No Q waves. T waves are Normal. No ST changes noted. Clinical impression: Normal ECG and No evidence of ischemia. Interpreted by me. Reviewed by me. Administered Medications: 14:40 Drug: Pepcid (famotidine) 20 mg Route: IVP; Site: right antecubital; 6 14:40 Drug: morphine 4 mg Route: IVP; Site: right antecubital; 6 14:40 Drug: Zofran (Ondansetron) 4 mg Route: IVP; Site: right antecubital; 6 14:40 Drug: NS 0.9% 500 ml Route: IV; Rate: bolus; Site: right antecubital; 6 14:41 Not Given (not indicatedd): Lopressor (metoprolol TARTRATE) 50 mg PO once jh6 14:57 Drug: Aspirin 162 mg Route: PO; 6 14:57 Drug: GI Cocktail without - (Maalox Suspension 30 ml, Lidocaine Liquid 2 % 15 jh6 ml) Route: PO; 16:04 Follow up: Response: No adverse reaction [facility] 15:36 Drug: Potassium Effervescent Tablet 25 mEq Route: PO; 6 16:04 Follow up: Response: No adverse reaction [facility] 16:04 Drug: NS 0.9% 1000 ml Route: IV; Rate: 125 ml/hr; Site: right antecubital; 6 Disposition Summary: 11/17/21 15:12 Hospitalization Ordered Hospitalization Status: Observation marina Provider: Chris Heath cha Location: Telemetry/MedSurg (observation) marina Condition: Stable marina Problem: new marina Symptoms: have improved marina Bed/Room Type: Standard marina Room Assignment: 208(11/17/21 16:37) eb Diagnosis - Chest pain, unspecified marina - Essential (primary) hypertension marina - Obesity, unspecified marina Forms: - Medication Reconciliation Form marina - SBAR form marina Signatures: Dispatcher [employer] Graham White MD MD cha Botello, Elizabeth eb Hastedt, Jennifer, RN RN 6 Ryan Catherine2 Corrections: (The following items were deleted from the chart) 16:37 15:12 marina eb
--- NOTE | 2021-11-17 15:12 | ER ---
Nurse's Notes [facility] Name: Terrell Rosales Age: 41 yrs Sex: Male : 1980 Arrival Date: 11/17/2021 Time: 14:07 Bed 4 Private MD: Diagnosis: Chest pain, unspecified;Essential (primary) hypertension;Obesity, unspecified Presentation: 11/17 14:13 Chief complaint: Patient states: "I woke up with severe chest pain and SOB.". ab2 Coronavirus screen: Vaccine status: Patient reports being unvaccinated. Client denies travel out of the [place] in the last 14 days. At this time, the client does not indicate any symptoms associated with coronavirus-19. Ebola Screen: Patient negative for fever greater than or equal to 101.5 degrees Fahrenheit, and additional compatible Ebola Virus Disease symptoms Patient denies exposure to infectious person. Patient denies travel to an Ebola-affected area in the 21 days before illness onset. No symptoms or risks identified at this time. Initial Sepsis Screen: Does the patient meet any 2 criteria? No. Patient's initial sepsis screen is negative. Does the patient have a suspected source of infection? No. Patient's initial sepsis screen is negative. Risk Assessment: Do you want to hurt yourself or someone else? Patient reports no desire to harm self or others. Onset of symptoms is unknown. 14:13 Method Of Arrival: Wheelchair ab2 14:13 Acuity: SAE 3 ab2 Triage Assessment: 14:15 General: Appears in no apparent distress. uncomfortable, Behavior is restless. Pain: ab2 Complains of pain in chest Pain currently is 10 out of 10 on a pain scale. Cardiovascular: Reports chest pain. Historical: - Allergies: 14:14 PENICILLINS; ab2 - PMHx: 14:14 Anxiety; Depression; GERD; ab2 - PSHx: 14:14 None; ab2 - Immunization history:: Adult Immunizations up to date. - Social history:: Smoking status: Patient denies any tobacco usage or history of. Screenin:22 Abuse screen: Denies threats or abuse. Denies injuries from another. Nutritional ww screening: No deficits noted. Tuberculosis screening: No symptoms or risk factors identified. Fall Risk None identified. Assessment: 14:30 General: Appears uncomfortable, Behavior is anxious. jh6 14:30 Pain: Complains of pain in xiphoid area and mid-sternal area Pain does not radiate. jh6 Pain currently is 10 out of 10 on a pain scale. Quality of pain is described as dull, heavy, Pain began suddenly, Is intermittent, Aggravated by increased activity, using bipap machine. Cardiovascular: No deficits noted. Reports chest pain, Capillary refill < 3 seconds Clubbing of nail beds is absent JVD is absent Patient's skin is warm and dry. Rhythm is sinus rhythm. 16:02 Reassessment: Patient is alert, oriented x 3, equal unlabored respirations, skin jh6 warm/dry/pink. Patient states feeling better. Pain: Complains of pain in xiphoid area Pain currently is 2 out of 10 on a pain scale. 17:36 Reassessment: No changes from previously documented assessment. Patient and/or family ww updated on plan of care and expected duration. Pain level reassessed. Patient is alert, oriented x 3, equal unlabored respirations, skin warm/dry/pink. General: Appears in no apparent distress. Behavior is calm. Pain:. Neuro: Level of Consciousness is awake, alert, obeys commands, Oriented to person, place, time, situation, Moves all extremities. Speech is normal. Respiratory: Airway is patent Respiratory effort is even, unlabored, Respiratory pattern is regular, symmetrical. Vital Signs: 14:13 BP 152 / 113; Pulse 90; Resp 20; Pulse Ox 100% on R/A; Weight 117.93 kg; Height 6 ft. 2 ab2 in. (187.96 cm); Pain 10/10; 14:22 Temp 97.6; ww 15:00 BP 133 / 82; Pulse 70; Resp 18; Pulse Ox 99% ; Pain 2/10; jh6 17:36 BP 142 / 89; Pulse 105; Resp 19; ww 14:13 Body Mass Index 33.38 (117.93 kg, 187.96 cm) ab2 ED Course: 14:07 Patient arrived in ED. ds1 14:14 Triage completed. ab2 14:15 Graham Boone MD is Attending Physician. marina 14:15 Arm band placed on right wrist. ab2 14:22 Patient has correct armband on for positive identification. Bed in low position. Call ww light in reach. Side rails up X 1. shelter monitor on. Pulse ox on. NIBP on. 14:22 Warm blanket given. ww 14:22 EKG done. Inserted saline lock: 20 gauge in right antecubital area, using aseptic ww technique. Blood collected. Patient maintains SpO2 saturation greater than 95% on room air. 15:11 Chris Heath MD is Hospitalizing Provider. [facility] 15:20 CT Chest For PE Angio In Process Unspecified. EDMS 15:43 XRAY Chest (1 view) In Process Unspecified. EDMS 15:44 Urine collected: clean catch specimen, clear. [facility] 17:37 No provider procedures requiring assistance completed. Patient admitted, IV remains in ww place. Administered Medications: 14:40 Drug: Pepcid (famotidine) 20 mg Route: IVP; Site: right antecubital; jh6 14:40 Drug: morphine 4 mg Route: IVP; Site: right antecubital; jh6 14:40 Drug: Zofran (Ondansetron) 4 mg Route: IVP; Site: right antecubital; 6 14:40 Drug: NS 0.9% 500 ml Route: IV; Rate: bolus; Site: right antecubital; jh6 14:41 Not Given (not indicatedd): Lopressor (metoprolol TARTRATE) 50 mg PO once jh6 14:57 Drug: Aspirin 162 mg Route: PO; jh6 14:57 Drug: GI Cocktail without - (Maalox Suspension 30 ml, Lidocaine Liquid 2 % 15 jh6 ml) Route: PO; 16:04 Follow up: Response: No adverse reaction 6 15:36 Drug: Potassium Effervescent Tablet 25 mEq Route: PO; jh6 16:04 Follow up: Response: No adverse reaction 6 16:04 Drug: NS 0.9% 1000 ml Route: IV; Rate: 125 ml/hr; Site: right antecubital; jh6 Outcome: 15:12 Decision to Hospitalize by Provider. [facility] 17:37 Admitted to Med/surg room 208, Report called to Critical access hospital 17:37 Condition: stable 17:37 Instructed on the need for admit. 17:49 Patient left the ED. eb Signatures: Dispatcher [employer] EDGraham Rios MD MD cha Sanford, Demi ds1 Ana Woods Jennifer, RN RN jh6 Paz Fajardo RN RN ww Florin, Ryan ab2 Nay Grissom jw7
[2021-11-17] MEDS ORDERED: POTASSIUM 25 MEQ EFFERV TAB ONE (15:32)
--- NOTE | 2021-11-17 15:34 | RAD REPORT ---
EXAM DESCRIPTION: CT - Chest For Pe Angio - 11/17/2021 3:18 pm CLINICAL HISTORY: Chest pain COMPARISON: None. TECHNIQUE: Dynamically enhanced axial 3 mm thick images of the chest were obtained during administra tion of <100> mL Isovue 370 IV contrast. Coronal and oblique reconstruction images were generated and reviewed. Exam utilizes a protocol for optimal evaluation of pulmonary arterial tree. Maximum intensity projections 3D imaging was utilized All CT scans are performed using dose optimization technique as appropriate and may include automated exposure control or mA/KV adjustment according to patient size. FINDINGS: A pulmonary embolus is not seen. A thoracic aortic aneurysm is not noted. A pleural effusion is not seen. A pericardial effusion is not seen. A lung consolidation is not present. IMPRESSION: Negative for a pulmonary embolism.
[2021-11-17 15:44] LABS: Urine Blood Negative (Negative); Urine Glucose Negative (Negative); Urine Protein Negative (Negative)
--- NOTE | 2021-11-17 15:51 | RAD REPORT ---
EXAM DESCRIPTION: Patty Single View11/17/2021 3:41 pm CLINICAL HISTORY: Chest pain COMPARISON: none FINDINGS: The lungs appear clear of acute infiltrate. The heart is probably upper limits normal siz e IMPRESSION: No acute abnormalities displayed
[2021-11-17] MEDS ORDERED: ACETAMINOPHEN 500 MG TAB PO PRN (16:20)
[2021-11-17] MEDS ORDERED: SODIUM CHLORIDE 0.9% 10ML INJ IV PRN (18:16)
[2021-11-17 18:28] VITALS: BMI 33.3
[2021-11-17] MEDS: MORPHINE 4 MG/ML SYR IV PRN (20:18)
[2021-11-17] MEDS: PANTOPRAZOLE 40 MG INJ IVP SCH (20:21)
[2021-11-17] MEDS: METOPROLOL TAR 50 MG TAB PO SCH (20:26)
[2021-11-17] MEDS ORDERED: lisinopriL 10 MG TAB PO SCH (21:00)
[2021-11-17] MEDS ORDERED: ATORVASTATIN 40 MG TAB PO SCH (21:00)
--- NOTE | 2021-11-18 03:35 | P.HP ---
Certification for Inpatient Patient admitted to: Observation With expected LOS: <2 Midnights Patient will require the following post-hospital care: None Practitioner: I am a practitioner with admitting privileges, knowledge of patient current condition, hospital course, and medical plan of care. Services: Services provided to patient in accordance with Admission requirements found in Title 42 Section 412.3 of the Code of Federal Regulations Patient History Date of Service: 11/17/21 Reason for admission: Intractable nausea and vomiting History of Present Illness: Patient is a 41-year-old gentleman who came to the hospital with intractable nausea and vomiting. Patient is also been having abdominal pain. Patient had diarrhea as well. Patient came to the emergency room for further evaluation. Patient had a CT of the chest which did not reveal any abnormality. Patient been started on IV fluids. Hopefully patient continues to improve and we can work on try to discharge in the morning. Allergies Penicillins Allergy (Severe, Verified 09/29/11 19:09) throat swelling acetaminophen [From Vicodin] Adverse Reaction (Mild, Verified 09/29/11 19:08) nausea vomiting hydrocodone bitartrate [From Vicodin] Adverse Reaction (Mild, Verified 09/29/11 19:08) nausea vomiting Home Medications: Esomeprazole Magnesium [Nexium] 20 mg PO DAILY 11/17/21 - Past Medical/Surgical History -: depression -: anxiety -: gerd Past Surgical History: Patient denies surgical history - Family History Father Family History: Reviewed- Non-Contributory - Social History Smoking Status: Never smoker Alcohol use: No CD- Drugs: No Place of Residence: Home Review of Systems 10-point ROS is otherwise unremarkable Physical Examination - Vital Signs Temperature: 97.8 F Blood Pressure: 118/70 Pulse: 51 Respirations: 19 Pulse Ox (%): 98 - Physical Exam General: Alert, In no apparent distress, Oriented x3 HEENT: Atraumatic, PERRLA, Mucous membr. moist/pink, EOMI, Sclerae nonicteric Neck: Supple, 2+ carotid pulse no bruit, No LAD, Without JVD or thyroid abnormality Respiratory: Clear to auscultation bilaterally, Normal air movement Cardiovascular: Regular rate/rhythm, Normal S1 S2, No murmurs Gastrointestinal: Normal bowel sounds, Soft and benign, Non-distended, No t enderness Musculoskeletal: No clubbing, No swelling, No tenderness Integumentary: No rashes Neurological: Normal gait, Normal speech, Normal strength at 5/5 x4 extr, Normal tone, Sensation intact, Cranial nerves 3-12 intact, Normal affect Lymphatics: No axilla or inguinal lymphadenopathy - Studies Laboratory Data (last 24 hrs) 11/17/21 14:18: PT 11.2, INR 1.02 11/17/21 14:18: WBC 9.0, Hgb 14.6, Hct 42.5, Plt Count 363 11/17/21 14:18: Sodium 140, Potassium 3.3 L, BUN 5 L, Creatinine 1.13, Glucose 120 H, Magnesium 2.2, Total Bilirubin 0.3, AST 17, ALT 40, Alkaline Phosphatase 84, Lipase 127 Assessment & Plan - Problems (Diagnosis) (1) Intractable nausea and vomiting Current Visit: Yes Status: Acute (2) Viral gastroenteritis Current Visit: Yes Status: Acute - Plan -IV antibiotics -IV fluids -Outpatient GI consultation -Reviewed labs -Advance diet as tolerated -Repeat abdominal film -NG tube to suction -Antiemetics Discharge Plan: Home Plan to discharge in: Greater than 2 days - Advance Directives Does patient have a Living Will: No Does patient have a Durable POA for Healthcare: No - Code Status/Comfort Care Code Status Assessed: Yes Code Status: Full Code Critical Care: No Time Spent Managing PTS Care (In Minutes): 45
[2021-11-18] MEDS: MORPHINE 4 MG/ML SYR IV PRN (04:28)
[2021-11-18] MEDS: ONDANSETRON 4 MG/2 ML VIAL IV PRN ×2 (04:28→11:19)
[2021-11-18 04:39] LABS: Absolute Lymphocytes (CBC) 1.8 K/uL (0.7-4.9); Hematocrit 38.9 % (39.6-49.0); Lymphocytes % 20.4 % (15.3-44.8); MPV 7.1 fL (7.6-11.3); RBC Red Blood Cell Count 4.49 M/uL (4.33-5.43)
[2021-11-18 04:46] LABS: Potassium 3.8 mmol/L (3.5-5.1)
[2021-11-18] MEDS: PANTOPRAZOLE 40 MG INJ IVP SCH (08:32)
[2021-11-18] MEDS: METOPROLOL TAR 50 MG TAB PO SCH (08:37)
[2021-11-18] MEDS ORDERED: ASPIRIN EC 81 MG TAB PO SCH (09:00)
[2021-11-18] MEDS ORDERED: ENOXAPARIN 40 MG/0.4 ML SQ SCH (09:00)
--- NOTE | 2021-11-18 09:27 | EKG ---
Test Date: 2021-11-17 Test Time: 14:13:10 Decontaminator: VINH MEASUREMENT RESULTS: Intervals: Rate: 85 [place]: 170 QRSD: 92 QT: 368 QTc: 437 [place]: P: 77 [place]: 170 QRS: 84 T: 64 INTERPRETIVE STATEMENTS: Normal sinus rhythm Normal ECG Compared to ECG 06/10/2019 06:24:25 No significant changes Electronically Signed On 11-18-21 09:25:48 CDT by Benjamin Garcia
--- NOTE | 2021-11-18 11:14 | P.PN ---
Subjective Date of Service: 11/18/21 Chief Complaint: Intractable nausea and vomiting Subjective: No new changes (Still very nauseous) Review of Systems General: Unremarkable Eyes: Unremarkable ENT: Unremarkable Respiratory: Unremarkable Cardiovascular: Unremarkable Gastrointestinal: Nausea, Abdominal Pain Genitourinary: Unremarkable Musculoskeletal: Unremarkable Neurological: Unremarkable Physical Examination - Vital Signs Temperature: 97.1 F Blood Pressure: 114/64 Pulse: 60 Respirations: 18 Pulse Ox (%): 98 - Physical Exam General: Alert, Oriented x3 HEENT: Atraumatic, Normocephalic Neck: Supple Respiratory: Clear to auscultation bilaterally Cardiovascular: Regular rate/rhythm, Normal S1 S2 Gastrointestinal: Soft and benign Musculoskeletal: No clubbing Neurological: Normal speech - Studies Laboratory Data (last 24 hrs) 11/17/21 14:18: PT 11.2, INR 1.02 11/17/21 14:18: WBC 9.0, Hgb 14.6, Hct 42.5, Plt Count 363 11/17/21 14:18: Sodium 140, Potassium 3.3 L, BUN 5 L, Creatinine 1.13, Glucose 120 H, Magnesium 2.2, Total Bilirubin 0.3, AST 17, ALT 40, Alkaline Phosphatase 84, Lipase 127 Assessment And Plan - Plan Gastroenteritis Esophagitis/gastritis Diarrhea History of hypertension Hyperlipidemia Plan: He does have continuous nausea however this is slightly better compared to on admission. We will continue empiric therapy with antiemetic. He has been on pantoprazole therapy, we will add sucralfate for additional relief. We will follow his symptomatology closely. He has been instructed to follow-up with GI doctor for endoscopy in view of his persistent gastrointestinal tract inflammation. Discharge Plan: Home
[2021-11-18] MEDS: SUCRALFATE 1 GM TABLET PO SCH ×2 (11:23→17:29)
[2021-11-18 11:54] VITALS: O2SAT 98
[2021-11-18] MEDS ORDERED: SUCRALFATE 1 GM TABLET PO SCH (13:00)
[2021-11-18] MEDS ORDERED: HYDROCODONE/APAP 7.5/325 MG TAB PO PRN (15:05)
[2021-11-18 17:21] VITALS: BP 116/67; TEMP 98
--- NOTE | 2021-11-18 19:58 | P.DS ---
Admission Date: 11/17/21 Discharge Date: 11/18/21 Disposition: ROUTINE DISCHARGE Discharge Condition: GOOD Reason for Admission: Intractable nausea and vomiting Consultations: none Procedures: CT chest FINDINGS: A pulmonary embolus is not seen. A thoracic aortic aneurysm is not noted. A pleural effusion is not seen. A pericardial effusion is not seen. A lung consolidation is not present. IMPRESSION: Negative for a pulmonary embolism. Chest x-ray FINDINGS: The lungs appear clear of acute infiltrate. The heart is probably upper limits normal size IMPRESSION: No acute abnormalities displayed Brief History of Present Illness: HPI patient is a 41-year-old gentleman who came to the hospital with intractable nausea and vomiting. Patient is also been having abdominal pain. Patient had diarrhea as well. Patient came to the emergency room for further evaluation. Patient had a CT of the chest which did not reveal any abnormality. Patient been started on IV fluids. Hopefully patient continues to improve and we can work on try to discharge in the morning. Hospital Course: Patient was admitted for intractable nausea and vomiting, has been able to tolerate a diet today is feeling much better. Patient has follow-up appointment with his GI doctor Dr. Zhou on Thursday. Return precautions given. Instructed to continue his home medications including Nexium. Vital Signs/Physical Exam: Temp Pulse Resp BP Pulse Ox 98 F 57 16 116/67 95 11/18/21 16:00 11/18/21 16:00 11/18/21 16:27 11/18/21 16:00 11/18/21 16:00 General: Alert, In no apparent distress HEENT: Atraumatic, PERRLA, EOMI Neck: Supple, JVD not distended Respiratory: Clear to auscultation bilaterally, Normal air movement Cardiovascular: Regular rate/rhythm, Normal S1 S2 Gastrointestinal: Normal bowel sounds, No tenderness Musculoskeletal: No tenderness Integumentary: No rashes Neurological: Normal speech, Normal tone, Normal affect Lymphatics: No axilla or inguinal lymphadenopathy Laboratory Data at Discharge: WBC 8.8 K/uL (4.3-10.9) 11/18/21 04:06 Hgb 13.5 g/dL (13.6-17.9) L 11/18/21 04:06 Hct 38.9 % (39.6-49.0) L 11/18/21 04:06 Plt Count 300 K/uL (152-406) 11/18/21 04:06 PT 11.2 SECONDS (9.5-12.5) 11/17/21 14:18 INR 1.02 11/17/21 14:18 Sodium 140 mmol/L (136-145) 11/18/21 04:06 Potassium 3.8 mmol/L (3.5-5.1) 11/18/21 04:06 BUN 5 mg/dL (7-18) L 11/18/21 04:06 Creatinine 1.03 mg/dL (0.55-1.3) 11/18/21 04:06 Glucose 106 mg/dL (74-106) 11/18/21 04:06 Magnesium 2.2 mg/dL (1.8-2.4) 11/17/21 14:18 Total Bilirubin 0.3 mg/dL (0.2-1.0) 11/17/21 14:18 AST 17 U/L (15-37) 11/17/21 14:18 ALT 40 U/L (12-78) 11/17/21 14:18 Alkaline Phosphatase 84 U/L (45-117) 11/17/21 14:18 Triglycerides 171 mg/dL (<150) H 11/18/21 04:06 Cholesterol 94 mg/dL (<200) 11/18/21 04:06 HDL Cholesterol 24 mg/dL (40-60) L 11/18/21 04:06 Cholesterol/HDL Ratio 3.92 11/18/21 04:06 Lipase 127 U/L (73-393) 11/17/21 14:18 Home Medications: Esomeprazole Magnesium [Nexium] 20 mg PO DAILY 11/17/21 Diet: Regular Activity: Ad lady Followup: GEOVANNY SMALL [Primary Care Provider] - Kashmir Asher MD [ASSOCIATE-ACTIVE - CAN ADMIT] - Physician Review: Patient Assessed, Agree with Above Assessment and Plan Time spent managing pt's care (in minutes): 30
== END 2021-11-18 21:14 | disposition home or self-care (01) ==
LOC: ER 14:06 → ERHOLD 16:48 → 2ND 17:40
PROVIDERS: ADMIT Hospitalist; ATTEND Hospitalist
DX: A08.4 Viral intestinal infection, unspecified (principal); K21.00 Gastro-esophageal reflux disease with esophagitis, without bleeding; R07.9 Chest pain, unspecified; I10 Essential (primary) hypertension; E78.5 Hyperlipidemia, unspecified; F32.A Depression, unspecified; F41.9 Anxiety disorder, unspecified; E66.9 Obesity, unspecified; Z68.33 Body mass index [BMI] 33.0-33.9, adult; Z88.0 Allergy status to penicillin; Z88.6 Allergy status to analgesic agent; Z20.822 Contact with and (suspected) exposure to COVID-19
CPT/HCPCS: 93005; 85025 ×2; 80048 ×2; 36415; 83735; 85610; 80061; 82947; 80076; 81003; 84484 ×2; 83690; 83880; 71275; 71045; 96375; 96374; 99285; U0003; Q9967; C9113 ×2; J1650; J7040; J2405 ×3; G0378 ×3